=== PATIENT | female | born 1950 | race Caucasian/White ===

== ENCOUNTER 2017-08-14 15:24 | Emergency (ER) | payer MEDICARE, BC ==
[2017-08-14 15:36] VITALS: BP 163/78
--- NOTE | 2017-08-14 16:41 | EDM.PDOC ---
ED HPI GENERAL MEDICAL PROBLEM - General Chief Complaint: Allergic Reaction Stated Complaint: ALLERGIC REACTION Time Seen by Provider: 08/14/17 15:40 Source of Information: Reports: Patient History Limitations: Reports: No Limitations - History of Present Illness INITIAL COMMENTS - FREE TEXT/NARRATIVE: 67-year-old female is having an allergic reaction on the anterior chest over the past several days from a scarf that contain fabric she believes she was allergic to. She was seen in the clinic yesterday and given some topical ointment, but today she is worse and feels like she is becoming short of breath. In the clinic she felt very weak and appeared to be dyspneic in the clinic staff became very worried she was having an anaphylactic response and gave her IV Solu-Medrol, Benadryl, and called the ambulance. She was feeling much better when she arrived to the emergency room. She still has a rash on the anterior chest, no widespread rash but the itchiness was extending into the hands and feet but that has resolved. Severity: Moderate Associated Symptoms: Reports: Shortness of Breath. 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) (Received Solu-Medrol and Benadryl prior to coming to the emergency room) - Related Data Allergies Allergy/AdvReac Type Severity Reaction Status Date / Time Sulfa (Sulfonamide Allergy unknown Verified 08/14/17 15:37 Antibiotics) cats Allergy Hives Uncoded 08/14/17 15:37 rabbits Allergy Rash Uncoded 08/14/17 15:37 Home Meds: Home Meds Acetaminophen/oxyCODONE [Percocet 325-5 MG] 1 tab PO Q4H PRN 06/06/15 [History] Ascorbic Acid [Vitamin C] 1,000 mg PO DAILY 06/06/15 [History] Calcium Carbonate/Vitamin D3 [Calcium 600 + D Tablet] 1,200 mg PO DAILY [History] Cholecalciferol (Vitamin D3) [Vitamin D] 1 tab PO DAILY 06/06/15 [History] Cyclobenzaprine [Flexeril] 10 mg PO TID PRN 06/06/15 [History] Fish Oil/[place]-3 Fatty Acids [Fish Oil 1,000 MG] 1,000 mg PO DAILY 06/06/15 [ History] Levothyroxine Sodium [Levothyroxine Sodium] 50 mcg PO DAILY 06/06/15 [History] Magnesium 100 mg PO DAILY 06/06/15 [History] Mirtazapine [Mirtazapine] 15 mg PO BEDTIME 06/06/15 [History] Multivitamin [Multivitamins] 1 tab PO DAILY 06/06/15 [History] SUMAtriptan Succinate [Imitrex] 100 mg PO ASDIRECTED 06/06/15 [History] traMADol [Ultram] 1 tab PO Q6H PRN 06/06/15 [History] ALPRAZolam [Alprazolam] 1 mg PO TID PRN 05/14/17 [History] Cetirizine [ZyrTEC] 10 mg PO DAILY 05/14/17 [History] Fluticasone Propionate [Flonase] 2 sprays NASBOTH DAILY 05/14/17 [History] Losartan Potassium 25 mg PO DAILY 05/14/17 [History] Naproxen [EC-Naprosyn] 500 mg PO BID 05/14/17 [History] Ondansetron [Zofran] 4 mg PO Q8HR 05/14/17 [History] Terbinafine [LamISIL] 250 mg PO DAILY 05/14/17 [History] oxyCODONE 50 mg PO Q6H PRN 05/14/17 [History] Past Medical History Cardiovascular History: Reports: Hypertension 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 History: Reports: Asthma 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: Musculoskeletal History: Reports: Arthritis, Back Pain, Chronic, Neck Pain, Chronic, Other (See Below) Other Musculoskeletal History: left shoulder Neurological History: Reports: Migraines Psychiatric History: Reports: Anxiety, Depression Endocrine/Metabolic History: Reports: Hypothyroidism - Past Surgical History Musculoskeletal Surgical History: Reports: Arthroscopic Knee Social & Family History - Tobacco Use Smoking Status *Q: Never Smoker - Caffeine Use Caffeine Use: Reports: Coffee - Recreational Drug Use Recreational Drug Use: No ED ROS ALLERGIC REACTION - Review of Systems Review Of Systems: See Below Constitutional: Denies: Fever, Chills HEENT: Denies: Throat Pain, Throat Swelling Respiratory: Reports: Shortness of Breath Cardiovascular: Denies: Chest Pain GI/Abdominal: Denies: Nausea, Vomiting Skin: Reports: Rash Neurological: Reports: Weakness ED EXAM GENERAL NO PERIP PULSE - Physical Exam Exam: See Below Exam Limited By: No Limitations General Appearance: Alert, No Apparent Distress Eye Exam: Bilateral Eye: Normal Inspection Throat/Mouth: Normal Inspection Neck: Other (Patient has a fairly diffusely spread rash over the anterior neck and upper chest, non-blanching and erythematous, somewhat papular) Respiratory/Chest: No Respiratory Distress, Lungs Clear Cardiovascular: Regular Rate, Rhythm GI/Abdominal: Non-Tender Extremities: No: Pedal Edema Neurological: Alert, Oriented Psychiatric: Normal Affect, Normal Mood Course - Vital Signs Last Recorded V/S: Last Vital Signs Temp 93.4 F L 08/14/17 15:27 Pulse 80 08/14/17 15:27 Resp 24 H 08/14/17 15: BP 163/78 H 08/14/17 15:27 Pulse Ox 100 08/14/17 15:27 - Re-Assessments/Exams Free Text/Narrative Re-Assessment/Exam: 08/14/17 16:39 Patient was observed for an hour and continued to feel better. She was discharged on 60 mg of prednisone daily to take with her morning meal for the next 3 days, and also Benadryl to take 25-50 mg every 6 hours. She can continue using the topical lotion and should return if worsening despite treatment. Departure - Departure Time of Disposition: 16:52 Disposition: Home, Self-Care 01 Condition: Good Clinical Impression: Contact dermatitis Qualifiers: Contact dermatitis type: allergic Contact dermatitis trigger: unspecified trigger Qualified Code(s): L23.9 - Allergic contact dermatitis, unspecified cause Acute allergic reaction Qualifiers: Encounter type: initial encounter Qualified Code(s): T78.40XA - Allergy, unspecified, initial encounter - Discharge Information Instructions: Anaphylactic Reaction, [id number] Referrals: PCP,None [Primary Care Provider] - Forms: ED Department Discharge Care Plan Goals: Take 6 pills of prednisone with your morning meal on Friday and Friday. Take 25-50 mg of Benadryl every 6 hours as needed through the weekend, continue with topical treatment and cool compresses. Return anytime if worsening despite treatment.
== END 2017-08-14 16:58 | disposition home or self-care (01) ==
LOC: JP.ED 15:24
DX: L23.9 Allergic contact dermatitis, unspecified cause (principal); J45.909 Unspecified asthma, uncomplicated; F32.9 Major depressive disorder, single episode, unspecified; E03.9 Hypothyroidism, unspecified; F41.9 Anxiety disorder, unspecified; Z79.899 Other long term (current) drug therapy; Z88.2 Allergy status to sulfonamides; Z91.09 Other allergy status, other than to drugs and biological substances
CPT/HCPCS: 99283

== ENCOUNTER 2017-08-20 15:35 | Emergency (ER) | payer MEDICARE, BC ==
[2017-08-20 15:51] VITALS: BP 123/66
--- NOTE | 2017-08-20 16:08 | EDM.PDOC ---
ED HPI GENERAL MEDICAL PROBLEM - General Chief Complaint: Allergic Reaction Stated Complaint: ALLERGIC REACTION Time Seen by Provider: 08/20/17 15:53 Source of Information: Reports: Patient, Family, RN Notes Reviewed History Limitations: Reports: No Limitations - History of Present Illness INITIAL COMMENTS - FREE TEXT/NARRATIVE: 67-year-old female presents to the emergency department today with concern of allergic type reaction, she recently had shoulder surgery performed a dressing of aqua cell AG with adhesive was placed over the wound 3 days prior. She states she was doing well until this morning developed redness around the dressing felt like she had a scratchy throat felt short of breath generalized discomfort from the dressing. She did take 25 mg of Benadryl prior to presentation - Related Data Allergies Allergy/AdvReac Type Severity Reaction Status Date / Time Sulfa (Sulfonamide Allergy unknown Verified 08/20/17 15:46 Antibiotics) cats Allergy Hives Uncoded 08/14/17 15:37 rabbits Allergy Rash Uncoded 08/14/17 15:37 Home Meds: Home Meds Acetaminophen/oxyCODONE [Percocet 325-5 MG] 1 tab PO Q4H PRN 06/06/15 [History] Ascorbic Acid [Vitamin C] 1,000 mg PO DAILY 06/06/15 [History] Calcium Carbonate/Vitamin D3 [Calcium 600 + D Tablet] 1,200 mg PO DAILY [History] Cholecalciferol (Vitamin D3) [Vitamin D] 1 tab PO DAILY 06/06/15 [History] Cyclobenzaprine [Flexeril] 10 mg PO TID PRN 06/06/15 [History] Fish Oil/[place]-3 Fatty Acids [Fish Oil 1,000 MG] 1,000 mg PO DAILY 06/06/15 [ History] Levothyroxine Sodium [Levothyroxine Sodium] 50 mcg PO DAILY 06/06/15 [History] Magnesium 100 mg PO DAILY 06/06/15 [History] Mirtazapine [Mirtazapine] 15 mg PO BEDTIME 06/06/15 [History] Multivitamin [Multivitamins] 1 tab PO DAILY 06/06/15 [History] SUMAtriptan Succinate [Imitrex] 100 mg PO ASDIRECTED 06/06/15 [History] traMADol [Ultram] 1 tab PO Q6H PRN 06/06/15 [History] ALPRAZolam [Alprazolam] 1 mg PO TID PRN 05/14/17 [History] Cetirizine [ZyrTEC] 10 mg PO DAILY 05/14/17 [History] Fluticasone Propionate [Flonase] 2 sprays NASBOTH DAILY 05/14/17 [History] Losartan Potassium 25 mg PO DAILY 05/14/17 [History] Naproxen [EC-Naprosyn] 500 mg PO BID 05/14/17 [History] Ondansetron [Zofran] 4 mg PO Q8HR 05/14/17 [History] Terbinafine [LamISIL] 250 mg PO DAILY 05/14/17 [History] oxyCODONE 50 mg PO Q6H PRN 05/14/17 [History] Past Medical History Cardiovascular History: Reports: Hypertension 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: Musculoskeletal History: Reports: Arthritis, Back Pain, Chronic, Neck Pain, Chronic, Other (See Below) Other Musculoskeletal History: left shoulder Neurological History: Reports: Migraines Psychiatric History: Reports: Anxiety, Depression Endocrine/Metabolic History: Reports: Hypothyroidism - Past Surgical History Musculoskeletal Surgical History: Reports: Arthroscopic Knee, Shoulder Surgery Social & Family History - Tobacco Use Smoking Status *Q: Never Smoker - Caffeine Use Caffeine Use: Reports: Coffee - Recreational Drug Use Recreational Drug Use: No ED ROS ALLERGIC REACTION - Review of Systems Review Of Systems: See Below Constitutional: Reports: No Symptoms Respiratory: Reports: Shortness of Breath Cardiovascular: Reports: No Symptoms GI/Abdominal: Reports: No Symptoms : Reports: No Symptoms Skin: Reports: Pruritis, Rash ED EXAM GENERAL NO PERIP PULSE - Physical Exam Exam: See Below Text/Narrative:: Examination of the left arm surgical wound is clean dry and intact, there is some erythema approximately 4 cm beyond the dressing border inside dressing over the Aquacel there is no erythema over the wound the erythema seems to outline the elastic portion of the dressing. Exam Limited By: No Limitations General Appearance: Alert, WD/WN, No Apparent Distress Throat/Mouth: Normal Inspection, Normal Lips, Normal Teeth, Normal Gums, Normal Oropharynx, Normal Voice, No Airway Compromise Neck: Normal Inspection, Supple, Non-Tender, Full Range of Motion Respiratory/Chest: No Respiratory Distress, Lungs Clear, Normal Breath Sounds, No Accessory Muscle Use Cardiovascular: Regular Rate, Rhythm, No Murmur Course - Vital Signs Last Recorded V/S: Last Vital Signs Temp 98.8 F 08/20/17 16:35 Pulse 81 08/20/17 16:35 Resp 16 08/20/17 16:35 BP 123/66 08/20/17 16:35 Pulse Ox 92 L 08/20/17 16:35 Departure - Departure Time of Disposition: 16:56 Disposition: Home, Self-Care 01 Condition: Good Clinical Impression: Contact dermatitis Qualifiers: Contact dermatitis type: allergic Contact dermatitis trigger: unspecified trigger Qualified Code(s): L23.9 - Allergic contact dermatitis, unspecified cause - Discharge Information Referrals: Mirian No PA [Primary Care Provider] - Forms: ED Department Discharge Additional Instructions: Keep your follow-up appointments with orthopedic surgery, call return to the emergency department with worsening of symptoms - Assessment/Plan Plan: Assessment Acuity = acute Site and laterality = contact dermatitis Etiology = secondary to adhesive dressing Manifestations = none Location of injury = Home Lab values = none Plan She had good improvement with the Benadryl she taken prior and removal of the offending agent, a new dressing was applied of a AD with paper tape keep her follow-up appointment with surgery This note was dictated using [employer] voice recognition software please call with any questions on syntax or nickolas.
== END 2017-08-20 17:29 | disposition home or self-care (01) ==
LOC: JP.ED 15:35
DX: L23.1 Allergic contact dermatitis due to adhesives (principal); J45.909 Unspecified asthma, uncomplicated; F41.9 Anxiety disorder, unspecified; F32.9 Major depressive disorder, single episode, unspecified; E03.9 Hypothyroidism, unspecified; Z79.899 Other long term (current) drug therapy; Z88.2 Allergy status to sulfonamides; Z91.09 Other allergy status, other than to drugs and biological substances
CPT/HCPCS: 99283

== ENCOUNTER 2019-09-14 06:26 | Day surgery (SDC) | payer MEDICARE, BC ==
[2019-09-14] MEDS ORDERED: Bupivacaine 0.5% 50 ML MDV ONE (06:34)
[2019-09-14] MEDS ORDERED: Lidocaine 1% with EPINEPHrine 1:100,000 50 ML MDV ONE (06:34)
[2019-09-14] MEDS ORDERED: ceFAZolin 2 GM in Premix Bag 1 BAG IV ONE (07:00)
[2019-09-14] MEDS ORDERED: Dextrose 5%-Lactated Ringers 1,000 ML IV SCH (07:00)
[2019-09-14] MEDS ORDERED: Bacitracin Oint 1 GM U/D Packet ONE (08:08)
[2019-09-14 08:37] VITALS: BP 170/82; PULSE 63
--- NOTE | 2019-09-18 21:36 | OR ---
DATE OF PROCEDURE: 09/14/2019 SURGEON: Chandrakant Molina MD PREOPERATIVE DIAGNOSIS: Lipoma, left inner thigh. POSTOPERATIVE DIAGNOSIS: Subfascial lipoma, left inner thigh. OPERATIVE PROCEDURE: Excision of subfascial lipoma, left inner thigh ([id number]). ANESTHESIA: Local. INDICATION FOR PROCEDURE: This is a 69-year-old presenting with increasingly symptomatic lipoma in her upper inner left thigh. The plan is to proceed with the excision of this. The patient did not wish to have any IV sedation, so local anesthesia alone was used. Potential risks including bleeding, infection, possible recurrence of the lipoma were reviewed, and the patient wishes to proceed. DETAILS OF THE PROCEDURE: The patient was taken to the operating room and placed in the supine position with the left leg in a frog-leg type position and the upper inner thigh was prepped and draped. The lipoma was then mapped out at the skin level once again and anesthetized with 1% lidocaine mixed with Marcaine. A transversely-oriented incision was then made and carried down through the skin and subcutaneous tissue. A well- defined lipoma was then excised using a combination of blunt and cautery dissection and delivered from the field. The entire lesion was 5.5 cm in length. The dissection was inspected and no bleeding or other problems were noted. The incision was closed with 2 layers of 3-0 and 4-0 Vicryl stitch deep and then curt for the skin. Dressing was applied. The patient was taken to the recovery room in satisfactory condition. Chandrakant Molina MD /[id number]
== END 2019-09-14 08:50 | disposition home or self-care (01) ==
LOC: JP.SDS 06:26
PROVIDERS: ATTEND Surgery
DX: D17.24 Benign lipomatous neoplasm of skin and subcutaneous tissue of left leg (principal)
CPT/HCPCS: 27337; 88304; J0690; J3490; J7121